=== PATIENT | male | born 1985 | race Caucasian/White ===

== ENCOUNTER 2019-07-28 18:02 | Emergency (ER) | payer SELFPAY ==
[~2019-07-28] VITALS: Ht 165.1 cm; Wt 68.0 kg
[2019-07-28 18:10] VITALS: BP 132/68
[2019-07-28] MEDS ORDERED: IBUPROFEN 600 MG TABLET PO ONE ×2 (19:00→20:26)
[2019-07-28] MEDS ORDERED: ACETAMINOPHEN 325 MG TABLET PO ONE (19:00)
[2019-07-28] MEDS ORDERED: ACETAMINOPHEN ES 500 MG TABLET ONE (20:26)
== END 2019-07-28 20:36 | disposition home or self-care (01) ==
LOC: ER 18:05
DX: S93.691A Other sprain of right foot, initial encounter (principal); S20.212A Contusion of left front wall of thorax, initial encounter; Z59.0 Homelessness; Z88.0 Allergy status to penicillin; V19.3XXA Pedal cyclist (driver) (passenger) injured in unspecified nontraffic accident, initial encounter; Y93.89 Activity, other specified; Y92.488 Other paved roadways as the place of occurrence of the external cause; Y99.8 Other external cause status
CPT/HCPCS: 71045-TC; 73630-TC